=== PATIENT | male | born 1975 | race Caucasian/White ===

== ENCOUNTER 2017-04-07 12:27 | Emergency (ER) | payer BC ==
[~2017-04-07] VITALS: Ht 193 cm; Wt 154.2 kg
--- OUTSIDE RECORDS SUMMARY | 2017-04-07 12:37 | External Medical Summary Rpt | CCD ---
Author Author IN[employer] Address Unknown Phone [email or web address] Purpose Continuity of Care Document - through 2016
--- OUTSIDE RECORDS SUMMARY | 2017-04-07 12:37 | External Medical Summary Rpt | CCD ---
Author Author [employer] Address Unknown Phone Purpose Continuity of Care Document - through 2016
--- OUTSIDE RECORDS SUMMARY | 2017-04-07 12:38 | External Medical Summary Rpt ---
Author Author [employer]O Alamo, [employer] Address Unknown Phone Unavailable
--- OUTSIDE RECORDS SUMMARY | 2017-04-07 12:38 | External Medical Summary Rpt | CCD ---
Author Author [employer] Organization [employer] Address Unknown Phone Unavailable Purpose Continuity of Care Document - through 2016
--- OUTSIDE RECORDS SUMMARY | 2017-04-07 12:38 | External Medical Summary Rpt | CCD ---
Demographics Preferred Language Austrian Marital Status Unknown Bahai Affiliation Unknown Race Unknown Ethnic Group Unknown Author Author , INO MCKINNON Address Unknown Phone Immunization No patient found.
--- OUTSIDE RECORDS SUMMARY | 2017-04-07 12:38 | External Medical Summary Rpt | CCD ---
Demographics Preferred Language Tajik Marital Status Unknown Scientology Affiliation Unknown Race Unknown Ethnic Group Unknown Author Author , INO MCKINNON Address Unknown Phone Immunization No patient found.
--- NOTE | 2017-04-07 13:24 | Urgent Treatment Center Report ---
History of Present Issue Date/Time Seen by Provider 04/07/17 1323 Visit Reason Pt arrived:Walked Presenting Problem:PT STATES HE ROLLED HIS LEFT ANKLE APPROX 1 MONTH AGO. HE THINKS HE MAY HAVE HAD AN XRAY AT . HES BEEN WEARING A BRACE AND TAKING TYLENOL AND ADVIL. SWELLING IS NOTED AROUND THE ANKLE. Location if Accident: Onset of symptoms date/time:/ or onset unknown for:MEDICAL HX UNKNOWN Have you (or family members/close friends) recently traveled outside the [place]? N If Yes, where/when: Have you had exposure to infectious disease within the past month? TB? Other? Specify: c/o left ankle pain, initially injured it one month ago, rolled it, was seen at , thinks xray but not sure, dx sprain, couldn't use crutches or air brace prescribed, bought otc ankle brace, pain worse x 1 week, medial and lateral ankle, worse first thing in morning, worse at end of work day, limping since accident, starting to make rt knee hurt, NSAIDs help "but I don't want to keep taking them" Source patient Exam Limitations no limitations ALLERGIES Coded Allergies: No Known Allergies (04/07/17) Home Medications Reported Medications No Known Home Medications History Medical History General CAD? No Angina: No NE: No Hypertension? Yes Hyperlipidemia? No CHF? No DVT? No PE? No COPD? No Asthma? No Anemia? No GERD? No Gastric ulcers? No GI Bleed? No Hernia? No Thyroid Problems? No Hypothyroidism? No CVA? No Seizures? No Diabetes? No Renal Insuffiency? No UTI? No Stones? No BPH? No GB Disease: No Nephritic Syndrome? No Asplenia? No Hepatitis? No Sickle Cell Disease? No Arthritis? No Migraines? No Cataracts? No Glaucoma? No MRSA? No HIV? No TB? No Anxiety? Yes Depression? No Cancer? No Site: N More? No Immunization HX DT/Tetanus Unknown Surgical Hx Previous Surgery?Y RT HAND Social History Smoking Hx Smoker: Never Smoker Tobacco: No Alcohol Alcohol: No Review of Systems All Other Systems Reviewed and Negative (as appropriate for CC) Constitutional denies fever, denies malaise Musculoskeletal see HPI, joint swelling Skin denies change in color, denies lesions Psychiatric/Neurological denies numbness, denies tingling Physical Exam Vital Signs Vital Signs Date Time Temp Pulse Resp B/P Pulse O2 O2 Flow FiO2 Ox Delivery Rate 04/07 1407 97.8 60 20 155/99 98 04/07 1257 97.8 60 20 155/99 98 General Appearance no apparent distress, obese Respiratory Status No: respiratory distress. Cardiovascular no peripheral edema Peripheral Pulses Pulses normal Yes (DP/PT) Back gait abnormality (limp, favoring left) Extremities moderate swelling left lateral malleous, marked TTP left medial malleous, limited left ankle ROM Strength 5 Lower Ext (L), 5 Lower Ext (R) Neurologic alert, no motor/sensory deficits, oriented x 3 Skin intact, normal color, warm/dry Medical Decision Making LABS/Meds/Orders Pt receiving controlled substance in ED? No Results/Orders Orders Procedure Date/time Status STABILIZE JOINT 04/07 135 Active XRAY/CT/US XRAY/CT/US XRAY ankle (left) XR interpretation by discussed w/radiologist (read report) Xray Results no acute findings Departure Departure Time of Disposition 135 Disposition DC Home or Self Care(routine) Clinical Impression Primary Impression: Left ankle sprain Qualifiers: Encounter type: initial encounter Involved ligament of ankle: unspecified ligament Qualified Code: S93.402A - Sprain of unspecified ligament of left ankle, initial encounter Condition STABLE Referrals RYLEY MULLINS DPM Stop by her office on your way out today and make a follow up appointment. I spoke to the office and they will be expecting you. Patient Instructions DI for Ankle Sprain Additional Instructions * STRONGLY enc crutches and noneight bearing. Pt unable to use crutches. Has tried "just can't do it". Willing to try walking boot. * Rest * ice 15-20 mins 3-4 times a day * Elevate as discussed as much as possible to help reduce swelling and therefore , pain * Ibuprofen every 6 hours as needed for pain and inflammation. If you need something more, you can take tylenol every 4 hours as needed as long as your primary care provider has told you it is ok to take both. * Follow up with Dr. Mullins Discharge Counseling Counseled pt/family regarding diagnosis, test results, medications/RX, home care, follow up needs Prescriptions Current Visit Scripts No Known Home Medications at 0920
--- NOTE | 2017-04-07 13:25 | RADIOLOGY REPORT PS360 ---
ANKLE-LT-3 VIEWS HISTORY: Pain following injury, sprain/strain of the ankle ROLLED ANKLE A WHILE AGO ORDERING PHYSICIAN: ISAIAH RUGGIERO APRN PATIENT AGE: 41 years COMPARISON: None FINDINGS: No fracture or dislocation. No lytic or blastic change. There is normal mineralization.. The joint spaces are well-preserved. No significant degenerative/arthritic changes. No erosive changes evident. IMPRESSION: Negative ankle, no acute finding
[2017-04-07 14:07] VITALS: BP 155/99
== END 2017-04-07 14:07 | disposition home or self-care (01) ==
LOC: UTC 12:27
PROC: 2W3RX1Z Immobilization of Left Lower Leg using Splint (ICD-10-PCS; principal; 2017-04-07)
DX: S93.402A Sprain of unspecified ligament of left ankle, initial encounter (principal); I10 Essential (primary) hypertension; X50.1XXA Overexertion from prolonged static or awkward postures, initial encounter; Y92.9 Unspecified place or not applicable